=== PATIENT | male | born 1945 | race Hispanic/Latino ===

== ENCOUNTER 2018-12-02 10:36 | Day surgery (SDC) | payer MEDICARE, OTHER ==
[~2018-12-02 10:36] MED LIST: DIPRIVAN 10 MG/ML IV ONE
[2018-12-02] MEDS ORDERED: NACL 0.9% 1000 ML 1,000 ML IV SCH (11:00)
[2018-12-02] MEDS ORDERED: WATER FOR IRRIG STERILE ONE (11:34)
--- NOTE | 2018-12-02 11:54 | Operative Report ---
Operative Report Operative Report: Procedure: Colonoscopy with hot biopsy polypectomy. Attending physician: Irwin Hobson MD [employer] Pilot: Irwin Hobson MD Indication: Patient is a 73-year-old male who presents for colonoscopy for colorectal cancer screening. Patient has a past history of colon polyps. A colonoscopy is now to evaluate patient so that treatment may be directed based on the findings. Consent: Informed consent was obtained after advising the patient and family regarding nature of this procedure, its indications, potential benefits as well as possible complications including but not limited to bleeding perforation and adverse reaction to medication, infection as well as other cardiopulmonary complications. An informed written and verbal consent was then obtained after due opportunity was provided for questions and answers. Monitoring: Patient was monitored continuously with pulse oximetry and el ectrocardiographic recordings as well as blood pressure recordings. Vital signs remained stable throughout this procedure with no untoward events. Preoperative assessment: Patient was assessed immediately prior to this procedure for capacity to tolerate monitored anesthesia care and moderate sedation as well as general anesthesia. Patient's ASA classification is 2, Mallampati class is 2, Hyomental distance is 3. Instrument: Olympus video colonoscope Medications: Propofol given intravenously in divided doses. For details please refer to anesthesia records. Description of procedure: Patient was placed in the left lateral decubitus position after achieving sedation, a digital rectal examination was performed following which the colonoscope was introduced into the anal verge and advanced to the cecum which was identified by the ileocecal valve, the appendiceal orifice, as well as by the cecal strap and direct transillumination. The colonoscope was subsequently withdrawn with careful inspection of all mucosal surfaces. Patient tolerated this procedure well and was subsequently taken to the recovery room. The following findings were noted. Findings: The preparation was adequate. The patient had diminutive diverticula in the sigmoid colon. The rest of the examination to the cecum from the sigmoid colon was normal. Patient had a diminutive flat polyp in the rectum measuring approximately 4-5 mm which was removed by hot biopsy polypectomy. On the retroflex view at the anal verge, patient had prominent internal hemorrhoids. Impression: Diminutive diverticula of the sigmoid colon. Diminutive flat polyp in the rectum status post biopsy polypectomy Prominent Internal hemorrhoids. Plan: Follow pathology report of the rectal polyp High-fiber diet. May benefit from hemorrhoid band ligation in the near future if patient is symptomatic from hemorrhoids. Repeat colonoscopy in 5 years.
--- NOTE | 2018-12-02 11:55 | Discharge Summary ---
Short Stay Discharge Plan Activity: advance as tolerated Weight Bearing Status: Weight Bear as Tolerated Diet: regular Follow up with: [facility] [Primary Care Provider] - 7 Days
[2018-12-02 12:26] VITALS: BP 118/70
--- NOTE | 2018-12-02 12:49 | Anesthesia Day of Surgery ---
Anesthesia Day of Surgery - Day of Surgery Patient Examined: Yes Patient H&P Reviewed: Yes Patient is NPO: Yes Beta Blockers: No Cardiac Clearance: No Pulmonary Clearance: No Marquez's Test: N/A
--- NOTE | 2018-12-02 12:50 | Anesthesia Consultation ---
Anesthesia Consult and Med Hx - Airway ROM Head & Neck: Adequate Mental/Hyoid Distance: Adequate Mallampati Class: Class II Intubation Access Assessment: Good - Pulmonary Exam CTA: Yes - Cardiac Exam Cardiac Exam: RRR - Pre-Operative Health Status ASA Pre-Surgery Classification: ASA2 Proposed Anesthetic Plan: General, MAC
[2018-12-02] MEDS ORDERED: XYLOCAINE MPF 2% ONE (15:00)
--- NOTE | 2018-12-02 18:28 | Post Anesthesia Evaluation ---
- Post Anesthesia Evaluation Patient Participated: Yes Airway Patent: Yes Stable Respiratory Function: Yes Nausea/Vomiting: No Temp > 96.8F: Yes Pain Manageable: Yes Adequeate Hydration: Yes Anesthesia Complications: No Block Receding Appropriately: Not Applicable Patient on Ventilator: No
== END 2018-12-02 10:37 | disposition home or self-care (01) ==
LOC: GIO 10:36
PROVIDERS: ATTEND Internal Medicine Gastroenterology
DX: Z12.11 Encounter for screening for malignant neoplasm of colon (principal); K62.1 Rectal polyp; K64.8 Other hemorrhoids; K57.30 Diverticulosis of large intestine without perforation or abscess without bleeding; E78.00 Pure hypercholesterolemia, unspecified; Z86.010 Personal history of colon polyps; Z79.899 Other long term (current) drug therapy; Z98.890 Other specified postprocedural states
CPT/HCPCS: 88305; J2704; J7030